=== PATIENT | male | born 1990 | race Caucasian/White ===

== ENCOUNTER 2019-07-18 06:48 | Emergency (ER) | payer OTHER ==
[~2019-07-18] VITALS: Ht 182.9 cm; Wt 106.5 kg
--- NOTE | 2019-07-18 06:58 | NUR ---
Pt ambulates with steady gait and balance from triage to ED room.
[2019-07-18 07:10] VITALS: BP 123/81
--- NOTE | 2019-07-18 07:15 | NUR ---
Pt in room secured for SI/HI. Sitter near doorway in direct line of sight for observation. Pt belongings removed and placed in one pt belonging bag in ED locker. Pt wearing hospital gown. Pt denies PMH of HI. Pt states "12 years of service without combat". Pt has unlabored respirations with even chest rise and fall. Pt requesting water. Pt provided water and pt aware of need or UA sample.
[2019-07-18 07:29] LABS: BASOPHILS # (AUTO) 0.02 x10^3/uL (0-0.1); BASOPHILS % (AUTO) 0 % (0-1); EOSINOPHILS # (AUTO) 0.17 x10^3/uL (0-0.4); EOSINOPHILS % (AUTO) 2 % (1-7); LYMPHOCYTES # (AUTO) 2.36 x10^3/uL (1-3.4); LYMPHOCYTES % (AUTO) 30 % (22-44); MD NO; MEAN CORPUSCULAR HEMOGLOBIN 30.6 pg (27.5-34.5); MEAN CORPUSCULAR HGB CONC 34.2 g/dL (33.2-36.2); MEAN CORPUSCULAR VOLUME 89.6 fL (81-97); MEAN PLATELET VOLUME 6.8 fL (7.4-10.4); MONOCYTES # (AUTO) 0.75 x10^3/uL (0.2-0.8); MONOCYTES % (AUTO) 9 % (2-9); NEUTROPHILS # (AUTO) 4.68 x10^3/uL (1.8-6.8); NEUTROPHILS % (AUTO) 59 % (42-75); PLATELET COUNT 361 x10^3/uL (130-400); RED CELL DISTRIBUTION WIDTH 13.1 % (9.4-14.8)
[2019-07-18 07:40] LABS: ALANINE AMINOTRANSFERASE 34 U/L (12-78); ALBUMIN 4.1 g/dL (3.4-5.0); ANION GAP 8 mmol/L (5-15); CALCIUM 8.6 mg/dL (8.5-10.1); CHLORIDE 106 mmol/L (98-107); CREATININE 1.16 mg/dL (0.7-1.3)
[2019-07-18 07:41] LABS: SALICYLATE LEVEL < 1.7 mg/dL (2.8-20.0)
[2019-07-18 07:43] LABS: ALKALINE PHOSPHATASE 73 U/L (45-117); BILIRUBIN,TOTAL 0.6 mg/dL (0.2-1.0); TOTAL PROTEIN 7.3 g/dL (6.4-8.2)
[2019-07-18 08:04] LABS: AMPHETAMINE SCREEN, URINE Negative (Negative); BARBITURATE SCREEN, URINE Negative (Negative); BENZODIAZEPINE SCREEN, URINE Negative (Negative); CANNABINOID SCREEN, URINE Positive (Negative); COCAINE SCREEN, URINE Negative (Negative); METHADONE SCREEN, URINE Negative (Negative); OPIATE SCREEN, URINE Negative (Negative)
--- NOTE | 2019-07-18 09:03 | NUR ---
Pt provided breakfast tray. Pt appreciaitve. No other needs expressed at this time. Room remains secured for SI/HI. Sitter near doorway in direct line of sight for observation. No needs expressed at this time.
--- NOTE | 2019-07-18 09:40 | NUR ---
TP RN: telepsych consult placed
--- NOTE | 2019-07-18 10:48 | NUR ---
Provided report to SOC physician. All questions answered. SOC physician to speak to pt through telepsych at this time.
--- NOTE | 2019-07-18 11:18 | NUR ---
SOC physician called back to recommend that pt has admission. Per SOC MD, "he is persistant about his suicidal ideation."
--- NOTE | 2019-07-18 11:21 | NUR ---
Pt resting on gurNPM watching TV. SOC telepsych consult completed. NADN. No needs expressed. Sitter in direct line of sight for observation. Called housekeeping requesting hospital bed. Left voicemail.
--- NOTE | 2019-07-18 11:57 | NUR ---
BREAK NOTE: PT GIVEN MEAL TRAY AND EATING LUNCH AT THIS TIME. PT BEING OBSERVED BY SITTER. ADMITTING PROVIDER AT BEDSIDE.
[2019-07-18] MEDS ORDERED: TRAZODONE 100MG TABLET PO ONE (12:30)
[2019-07-18] MEDS ORDERED: TRAZODONE 50MG TABLET ONE (12:37)
--- NOTE | 2019-07-18 12:43 | NUR ---
Provided medication per EMAR. Per psychologist social verbal order, provided pt his personal cellphone to contact his friend to remove pt's guns from pt's home. Pt's friend is to give verbal confirmation to EDRN when this task is completed. CORA. Pt appreciative. No needs expressed.
--- NOTE | 2019-07-18 12:54 | NUR ---
TP RN: pt declined by Jarvis at [facility]
--- NOTE | 2019-07-18 13:13 | NUR ---
Pt provided hospital bed. Pt appreciative. NADN. No needs expressed. Sitter near doorway in direct line of sight for observation.
--- NOTE | 2019-07-18 14:27 | NUR ---
Pt resting on hospital bed with eyes closed. Pt has unlabored respirations with even chest rise and fall. NADN. No needs expressed. Sitter near doorway in direct line of sight for observation.
--- NOTE | 2019-07-18 15:17 | NUR ---
Pt resting with eyes closed and even chest rise and fall with unlabored respirations on hospital bed. No needs expressed. Sitter near doorway in direct line of sight for observation.
--- NOTE | 2019-07-18 16:53 | NUR ---
Dinner tray provided to pt. Pt appreciative. Sitter near doorway in direct line of sight for observation. No other needs requested.
--- NOTE | 2019-07-18 18:38 | NUR ---
Patient given discharge instructions and they have confirmed that they understand the instructions. Patient ambulatory with steady gait. Pt provided Rx, d/c paperwork, all personal belongings from ED locker. Pt left with all listed items. NADN. No other needs expressed.
--- NOTE | 2019-07-18 18:40 | NUR ---
Please see [employer] Terri's note regarding pt's gun removal from home prior to d/c.
[2019-07-18] MEDS ORDERED: MELATONIN 5 MG TABLET PO PRN (21:00)
[2019-07-18] MEDS ORDERED: TRAZODONE 100MG TABLET PO PRN (21:00)
== END 2019-07-18 18:43 | disposition home or self-care (01) ==
LOC: ED 07:40
DX: R45.851 Suicidal ideations (principal); F33.9 Major depressive disorder, recurrent, unspecified
CPT/HCPCS: 36415; 80053; 80307; 85025; 99284